=== PATIENT | female | born 1980 | race Caucasian/White ===

== ENCOUNTER 2020-11-16 14:18 | Emergency (ER) | payer BC, OTHER ==
[2020-11-16] MEDS ORDERED: NAPROXEN500 MG PO (16:38)
[2020-11-16] MEDS ORDERED: PHENERGAN 25 MG25 M1 PO (16:38)
== END 2020-11-16 16:50 | disposition home or self-care (01) ==
LOC: ER1 14:18
DX: R51.9 Headache, unspecified (principal); R11.0 Nausea; Z87.442 Personal history of urinary calculi
CPT/HCPCS: 70450; 96374; 96375; 99284; J1200; J1885; J2765